=== PATIENT | male | born 1985 | race Caucasian/White ===

== ENCOUNTER 2022-03-10 23:53 | Emergency (ER) | payer OTHER, SELFPAY ==
[2022-03-10 23:59] VITALS: BP 138/90; PULSE 60; RESP 18; TEMP 36.6; O2SAT 99
--- NOTE | 2022-03-11 00:14 | ED_ITS ---
HPI - Eye Problem General Chief complaint: Eye Problems Stated complaint: something in rt eye Time Seen by Provider: 03/11/22 00:10 Source: patient Mode of arrival: Ambulatory History of Present Illness HPI Narrative: 36M nonsmoker without chronic medical history presents with redness and irritation to his right eye which he noticed tonight. He states that he feels like there is something under his upper lid. He does wear contacts and states that they are changed monthly and is typically very careful about changing them at the appropriate time. He states that he took his contact out but it actually felt worse with it out so he put it back in. He denies any change in vision. He is denies any drainage or trauma. He denies welding, metal grinding, UV exposure. He has no recent upper respiratory infections or painful facial rash Related Data Home Medications Medication Instructions Recorded Confirmed . (No Home Medications) ##0 09/06/05 [GLUCOSAMINE] PO QDAY ##0 03/29/10 Allergies Allergy/AdvReac Type Severity Reaction Status Date / Time INGREDIENT: NKDA - NO KNOWN Allergy Unknown Uncoded 06/23/17 12:05 DRUG ALLERGIES Review of Systems Review of Systems Narrative: GENERAL: Denies chills, fatigue, malaise, fever, sweats. HEENT: See HPI RESPIRATORY: Denies dyspnea, cough, wheezing, hemoptysis, sputum. CARDIOVASCULAR: Denies chest pain, palpitations, orthopnea, edema, GASTROINTESTINAL: Denies nausea, vomiting, abdominal pain, diarrhea, constipation, melena. : Denies dysuria, frequency, incontinence, hematuria, urinary retention. MUSCULOSKELETAL: denies weakness, joint pain, or bony pain SKIN: Denies rash, skin lesions, or other NEUROLOGIC: Denies weakness, headache, numbness, change in speech, confusion, seizures, incoordination. PSYCHIATRIC: No concerning psychosocial issues. 12 point review of systems is negative except for those stated above Patient History Social History Smoking Status: Never smoker Smoking Status: Never smoker alcohol intake frequency: a few times a month Substance Use Type: marijuana Exam Narrative Exam Narrative: GENERAL: [36] year old patient appears stated age. Well-developed patient, in mild distress. HEAD: Atraumatic. Normocephalic. EYES: Pupils equal round and reactive. Extraocular motions intact. Right eye with mild injection and watering. No foreign body noted with use of Wood's lamp, upper lid everted, including gentle blind sweep of underside of upper lid with sterile q tip. Patient with complete resolution of discomfort with 1 drop of proparacaine. No fluorescein uptake noted under UV lamp. Pressure with Ramos-Pen 17 mm Hg. Visual acuity unremarkable ENT: Nose without bleeding, purulent drainage. Throat without erythema, tonsillar hypertrophy or exudate. Airway patent. NECK: Trachea midline. Non tender CARDIOVASCULAR: Regular rate and rhythm without murmurs, gallops, or rubs. RESPIRATORY: Clear to auscultation. Breath sounds equal bilaterally. No wheezes, rales, or rhonchi. GASTROINTESTINAL: Abdomen soft, non-tender, nondistended. EXTREMITIES: No edema or joint tenderness. BACK: Nontender without deformity or crepitance. No flank tenderness. NEURO: AOx3. SKIN: No rash or erythema of visible areas Initial Vital Signs Initial Vital Signs: Vital Signs Temperature 98 F 03/10/22 23:59 Pulse Rate 60 03/10/22 23:59 Respiratory Rate 18 03/10/22 23:59 Blood Pressure 138/90 03/10/22 23:59 Pulse Oximetry 99 03/10/22 23:59 Oxygen Delivery Method 03/10/22 23:59 Course Orders Ordered: Discontinued Medications Fluorescein Sodium (Fluorescein 1 Mg Strip) 1 mg EYE-RIGHT NOW ONE Stop: 03/11/22 00:11 Last Admin: 03/11/22 00:21 Dose: 1 mg Documented By: DANII Proparacaine HCl (Proparacaine 0.5% Ophth Shelly) 1 drops EYE-RIGHT NOW ONE Stop: 03/11/22 00:11 Last Admin: 03/11/22 00:20 Dose: 1 box Documented By: DANII Vital Signs Vital signs: Vital Signs - 8 hr 03/10/22 23:59 Temperature 98 F Pulse Rate 60 Respiratory Rate 18 Blood Pressure 138/90 Pulse Oximetry 99 Oxygen Delivery Method Room Air Discharge Plan Departure Patient Disposition: Home Clinical Impression: Acute right eye pain Instructions: DI for Eye Pain Activity Restrictions/Additional Instructions: *You have been diagnosed with [right eye pain. As we discussed your history and physical exam are reassuring, there is no measured abnormality in your visual acuity, I was unable to see any abrasions or ulcerations on your exam and the pressures of your eye are reassuring.] *What to do: *Please continue to take your regular medications as directed. *You have been given a 3mL bottle of proparacaine which has been diluted down to 0.05% concentration. You may use 1-2 drops every 45-60 minutes for up to 48 hours as needed for pain. *Please follow up with your primary eye doctor in 1-2 days, call for an appointment. Let them know you were seen in the Emergency Department and that we ask that you be seen in follow up. We will electronically transmit a record of today's note if your PCP is in our system if possible. *as we discussed please do not wear a contact in your right eye until follow-up * if you are unable to get an appointment with your eye doctor please consider calling Dr. Morrissey or Dr. Quintana at the number listed below, let them know that you were seen in the emergency department and we would like you seen in follow- up *Return to Emergency Department if you should have any new, worsening or concerning symptoms, such as [fever greater than 101 F, shaking chills, worsening pain, persistent vomiting or other bothersome symptoms] Prescriptions: No Action . (No Home Medications) Qty: 0 [GLUCOSAMINE] PO QDAY Qty: 0 Referrals: Tom Morrissey MD [Physician] - Visit Report Forms: Patient Portal/API
[2022-03-11] MEDS: PROPARACAINE 0.5% OPHTH SOL 1 DROPS EYE-RIGHT (00:20)
[2022-03-11] MEDS: FLUORESCEIN 1 MG STRIP EYE-RIGHT (00:21)
== END 2022-03-11 00:38 | disposition home or self-care (01) ==
PROVIDERS: Emergency Provider Emergency Medicine
DX: H57.11 Ocular pain, right eye (principal)
CPT/HCPCS: 99282

== ENCOUNTER 2023-04-17 17:02 | Emergency (ER) | payer OTHER, SELFPAY ==
[2023-04-17 17:04] VITALS: BP 149/92; PULSE 68; RESP 16; TEMP 36.4; O2SAT 99; BMI 25.1
[2023-04-17 17:13] VITALS: BP 145/97; PULSE 72; O2SAT 100
--- NOTE | 2023-04-17 17:16 | ED_ITS ---
HPI - Nausea/Vomiting/Diarrhea <DO Nestor Dougherty Last Filed: 04/18/23 07:02> General Chief complaint: Nausea/Vomiting/Diarrhea Stated complaint: NVD Time Seen by Provider: 04/17/23 17:09 Source: patient Mode of arrival: Ambulatory History of Present Illness HPI Narrative: Patient is an otherwise healthy 37-year-old male who is here for evaluation several days of nausea. No vomiting. Is also having diarrhea. He reports that it is dark in color but no black color. Did have some burning with urination a couple days ago but nothing now. Generalized abdominal discomfort. He has had his appendix removed. Also reports he has having a cough. No shortness of breath. No chest pain. No recent travel. No recent antibiotics. Related Data Home Medications Medication Instructions Recorded Confirmed . (No Home Medications) ##0 09/06/05 [GLUCOSAMINE] PO QDAY ##0 03/29/10 Allergies Allergy/AdvReac Type Severity Reaction Status Date / Time INGREDIENT: NKDA - NO KNOWN Allergy Unknown Uncoded 06/23/17 12:05 DRUG ALLERGIES Review of Systems <DO Nestor Dougherty Last Filed: 04/18/23 07:02> Constitutional Constitutional: Reports system reviewed and no additional complaints, except as documented Cardiovascular Cardiovascular: Reports system reviewed and no additional complaints, except as documented Respiratory Respiratory: Reports system reviewed and no additional complaints, except as documented Gastrointestinal Gastrointestinal: Reports system reviewed and no additional complaints, except as documented Integumentary/Breasts Skin/Breast: Reports system reviewed and no additional complaints, except as documented Neurologic Neurologic: Reports system reviewed and no additional complaints, except as documented Patient History <DO Nestor Dougherty Last Filed: 04/18/23 07:02> Social History Smoking Status: Never smoker Smoking Status: Never smoker alcohol intake frequency: a few times a month Substance Use Type: marijuana Exam <Tejas Vasquez DO - Last Filed: 04/18/23 07:02> Initial Vital Signs Initial Vital Signs: Vital Signs Temperature 97.6 F 04/17/23 17:04 Pulse Rate 68 04/17/23 17:04 Respiratory Rate 16 04/17/23 17:04 Blood Pressure 149/92 H 04/17/23 17:04 Pulse Oximetry 99 04/17/23 17:04 Oxygen Delivery Method Room Air 04/17/23 17:04 HENMT Head: normal to inspection and normocephalic Resp Effort & Inspection: normal respiratory effort Auscultation: clear to auscultation bilaterally Cardio Rate: regular rate Rhythm: regular rhythm GI Inspection: normal to inspection and non-distended Palpation: soft, No firm, No guarding and No tender Neuro General: patient alert, patient awake and moves all extremities Extrem General: normal to inspection and capillary refill normal <Eitan Bingham MD - Last Filed: 04/17/23 18:58> Initial Vital Signs Initial Vital Signs: Vital Signs Temperature 97.6 F 04/17/23 17:04 Pulse Rate 68 04/17/23 17:04 Respiratory Rate 16 04/17/23 17:04 Blood Pressure 149/92 H 04/17/23 17:04 Pulse Oximetry 99 04/17/23 17:04 Oxygen Delivery Method Room Air 04/17/23 17:04 Course <Tejas Vasquez DO - Last Filed: 04/18/23 07:02> Orders Ordered: Discontinued Medications Sodium Chloride (Normal Saline 0.9%) 1,000 mls @ 1,000 mls/hr IV BOLUS ONE Stop: 04/17/23 18:09 Last Infusion: 04/17/23 18:20 Dose: Infused Documented By: Admin: 04/17/23 17:30 Dose: 1,000 mls/hr Documented By: DEA Ondansetron HCl (Ondansetron 4 Mg/2 Ml Inj) 4 mg IV NOW ONE Stop: 04/17/23 17:11 Last Admin: 04/17/23 17:30 Dose: 4 mg Documented By: DEA Vital Signs Vital signs: Vital Signs - 8 hr 04/17/23 17:04 04/17/23 17:13 04/17/23 17:13 Temperature 97.6 F Pulse Rate 68 72 Respiratory Rate 16 Blood Pressure 149/92 H 145/97 H Pulse Oximetry 99 100 Oxygen Delivery Method Room Air 04/17/23 17:30 04/17/23 17:30 04/17/23 18:00 Temperature Pulse Rate 66 68 Respiratory Rate Blood Pressure 121/76 Pulse Oximetry 99 100 Oxygen Delivery Method 04/17/23 18:00 Temperature Pulse Rate Respiratory Rate Blood Pressure 121/73 Pulse Oximetry Oxygen Delivery Method <Eitan Bingham MD - Last Filed: 04/17/23 18:58> Orders Ordered: Discontinued Medications Sodium Chloride (Normal Saline 0.9%) 1,000 mls @ 1,000 mls/hr IV BOLUS ONE Stop: 04/17/23 18:09 Last Infusion: 04/17/23 18:20 Dose: Infused Documented By: Admin: 04/17/23 17:30 Dose: 1,000 mls/hr Documented By: RB Ondansetron HCl (Ondansetron 4 Mg/2 Ml Inj) 4 mg IV NOW ONE Stop: 04/17/23 17:11 Last Admin: 04/17/23 17:30 Dose: 4 mg Documented By: RB Vital Signs Vital signs: Vital Signs - 8 hr 04/17/23 17:04 04/17/23 17:13 04/17/23 17:13 Temperature 97.6 F Pulse Rate 68 72 Respiratory Rate 16 Blood Pressure 149/92 H 145/97 H Pulse Oximetry 99 100 Oxygen Delivery Method Room Air 04/17/23 17:30 04/17/23 17:30 04/17/23 18:00 Temperature Pulse Rate 66 68 Respiratory Rate Blood Pressure 121/76 Pulse Oximetry 99 100 Oxygen Delivery Method 04/17/23 18:00 Temperature Pulse Rate Respiratory Rate Blood Pressure 121/73 Pulse Oximetry Oxygen Delivery Method MDM - Nausea/Vomiting/Diarrhea <Tejas Vasquez DO - Last Filed: 04/18/23 07:02> Lab Data Attestation: I reviewed the patient's lab results. 04/17/23 17:20 04/17/23 17:20 Labs: Lab Results 04/17/23 04/17/23 Range/Units 17:20 17:30 WBC 11.0 (4.5-11.0) X10^3/uL RBC 4.64 (4.5-5.9) X10^6/uL Hgb 14.8 (13.5-17.5) g/dL Hct 42.7 (41-53) % MCV 92.0 (80-100) fL MCH 31.8 (26-34) PG MCHC 34.6 (30-36) % RDW 12.9 (11.6-14.8) % Plt Count 269 (150-400) X10^3/uL Neut % (Auto) 75.8 H (50-75) % Lymph % (Auto) 19.2 L (25-40) % Starke % (Auto) 4.2 (3-14) % Eos % (Auto) 0.4 L (2-4) % Baso % (Auto) 0.4 (0-2) % Neut # (Auto) 8300 H (1252-1576) /uL Lymph # (Auto) 2100 (9800-0264) /uL Starke # (Auto) 500 (0-900) /uL Eos # (Auto) 0 (0-450) /uL Baso # (Auto) 0 (0-100) /uL Sodium 136 L (137-145) mmol/L Potassium 4.0 (3.4-5.1) mmol/L Chloride 99 (98-107) mmol/L Carbon Dioxide 27 (22-32) mmol/L BUN 20 (9-20) mg/dL Creatinine 0.92 (0.66-1.25) mg/dL Estimated GFR > 60 (>60) mL/min BUN/Creatinine Ratio 21.7 (6-22) Glucose 113 H (70-100) mg/dL Calcium 9.7 (8.4-10.2) mg/dL Total Bilirubin 0.7 (0.2-1.3) mg/dL AST 31 (17-59) IU/L ALT 23 (<50) IU/L Alkaline Phosphatase 77 (38-126) U/L Total Protein 8.5 H (6.3-8.2) g/dL Albumin 4.8 (3.5-5.0) g/dL Globulin 3.7 (1.7-4.1) g/dL Albumin/Globulin Ratio 1.3 (1.0-2.8) Lipase 126 (23-300) U/L SARS-CoV-2 (PCR) Positive H (Negative) Influenza A (RT-PCR) Flu a negative (NEGATIVE) Influenza B (RT-PCR) Flu b negative (NEGATIVE) RSV (PCR) Negative (Negative) Urine Dip Bedside Urine Glucose Negative Bedside Urine Bilirubin - Negative Bedside Urine Ketone - Negative Urine Specific Weiner 1.015 Bedside Urine Occult Blood - Negative Bedside Urine pH 7.5 Bedside Urine Protein - Negative Bedside Urine Urobilinogen - Negative Bedside Urine Nitrite - Negative Bedside Urine Leukocytes - Negative Esterase MDM Narrative Medical decision making narrative: Benign exam. Symptoms have been present for the past couple days. He did have dysuria couple days ago but none currently. Will obtain labs and urinalysis and labs. Re-evaluate and disposition. <Eitan Bingham MD - Last Filed: 04/17/23 18:58> Lab Data Labs: Lab Results 04/17/23 04/17/23 Range/Units 17:20 17:30 WBC 11.0 (4.5-11.0) X10^3/uL RBC 4.64 (4.5-5.9) X10^6/uL Hgb 14.8 (13.5-17.5) g/dL Hct 42.7 (41-53) % MCV 92.0 (80-100) fL MCH 31.8 (26-34) PG MCHC 34.6 (30-36) % RDW 12.9 (11.6-14.8) % Plt Count 269 (150-400) X10^3/uL Neut % (Auto) 75.8 H (50-75) % Lymph % (Auto) 19.2 L (25-40) % Starke % (Auto) 4.2 (3-14) % Eos % (Auto) 0.4 L (2-4) % Baso % (Auto) 0.4 (0-2) % Neut # (Auto) 8300 H (8268-2485) /uL Lymph # (Auto) 2100 (0860-0895) /uL Starke # (Auto) 500 (0-900) /uL Eos # (Auto) 0 (0-450) /uL Baso # (Auto) 0 (0-100) /uL Sodium 136 L (137-145) mmol/L Potassium 4.0 (3.4-5.1) mmol/L Chloride 99 (98-107) mmol/L Carbon Dioxide 27 (22-32) mmol/L BUN 20 (9-20) mg/dL Creatinine 0.92 (0.66-1.25) mg/dL Estimated GFR > 60 (>60) mL/min BUN/Creatinine Ratio 21.7 (6-22) Glucose 113 H (70-100) mg/dL Calcium 9.7 (8.4-10.2) mg/dL Total Bilirubin 0.7 (0.2-1.3) mg/dL AST 31 (17-59) IU/L ALT 23 (<50) IU/L Alkaline Phosphatase 77 (38-126) U/L Total Protein 8.5 H (6.3-8.2) g/dL Albumin 4.8 (3.5-5.0) g/dL Globulin 3.7 (1.7-4.1) g/dL Albumin/Globulin Ratio 1.3 (1.0-2.8) Lipase 126 (23-300) U/L SARS-CoV-2 (PCR) Positive H (Negative) Influenza A (RT-PCR) Flu a negative (NEGATIVE) Influenza B (RT-PCR) Flu b negative (NEGATIVE) RSV (PCR) Negative (Negative) Urine Dip Bedside Urine Glucose Negative Bedside Urine Bilirubin - Negative Bedside Urine Ketone - Negative Urine Specific Weiner 1.015 Bedside Urine Occult Blood - Negative Bedside Urine pH 7.5 Bedside Urine Protein - Negative Bedside Urine Urobilinogen - Negative Bedside Urine Nitrite - Negative Bedside Urine Leukocytes - Negative Esterase MDM Narrative Medical decision making narrative: Benign exam. Symptoms have been present for the past couple days. He did have dysuria couple days ago but none currently. Will obtain labs and urinalysis and labs. Re-evaluate and disposition. Current time is 6:54 p.m.. IEitan, assumed care from Dr. Tejas Vasquez at approximately 6:00 p.m. patient is comfortably reading a book when I go to talk to him. He has SARS-CoV-2 on his viral swab. I think this is the explanation for the symptoms he was experiencing. I think home disposition and outpatient follow-up as needed with careful return precautions is all that is required at this time. Discharge Plan Departure Patient Disposition: Home Clinical Impression: COVID-19 Activity Restrictions/Additional Instructions: Fortunately no severe complications of COVID-19 are identified with this infection today. I recommend copious oral hydration, Tylenol 1000 mg taken together with ibuprofen 600 mg every 6 hours. Extra rest. I expect you to feel back to normal in about a week. Follow up right away for breathlessness at rest, repeated severe vomiting or diarrhea, fainting or other severe symptoms. Prescriptions: No Action . (No Home Medications) Qty: 0 [GLUCOSAMINE] PO QDAY Qty: 0 Referrals: Miscellaneous,Doctor, MD [Primary Care Provider] - Stand Alone Forms: Patient Portal/API
[2023-04-17 17:27] LABS: Add Manual Diff / Slide Review NO; Basophils Absolute Auto 0 /uL (0-100); Basophils Percent Auto 0.4 % (0-2); Eosinophils Absolute Auto 0 /uL (0-450); Eosinophils Percent Auto 0.4 % (2-4); Hematocrit 42.7 % (41-53); Hemoglobin 14.8 g/dL (13.5-17.5); Lymphocytes Absolute Auto 2100 /uL (1100-4500); Lymphocytes Percent Auto 19.2 % (25-40); Mean Corpuscular HGB Conc 34.6 % (30-36); Mean Corpuscular Hemoglobin 31.8 PG (26-34); Monocytes Absolute Auto 500 /uL (0-900); Monocytes Percent Auto 4.2 % (3-14); Neutrophils Absolute Auto 8300 /uL (1500-7000); Neutrophils Percent Auto 75.8 % (50-75); Platelet Count 269 X10^3/uL (150-400); Red Blood Cell Count 4.64 X10^6/uL (4.5-5.9); Red Cell Distribution Width 12.9 % (11.6-14.8)
[2023-04-17 17:30] VITALS: BP 121/76; PULSE 66; O2SAT 99
[2023-04-17] MEDS: SODIUM CHLORIDE 0.9% 1,000 ML 1000 ML IV (17:30)
[2023-04-17] MEDS: ONDANSETRON 4 MG/2 ML INJ IV (17:30)
[2023-04-17 17:38] LABS: Alanine Aminotransferase 23 IU/L (<50); Albumin 4.8 g/dL (3.5-5.0); Albumin Globulin Ratio 1.3 (1.0-2.8); Alkaline Phosphatase 77 U/L (38-126); Aspartate Aminotransferase 31 IU/L (17-59); BUN Creatinine Ratio 21.7 (6-22); Bilirubin Total 0.7 mg/dL (0.2-1.3); Blood Urea Nitrogen 20 mg/dL (9-20); Calcium 9.7 mg/dL (8.4-10.2); Carbon Dioxide 27 mmol/L (22-32); Chloride 99 mmol/L (98-107); Estimated Glomerular Filt Rate > 60 mL/min (>60); Globulin 3.7 g/dL (1.7-4.1); Glucose 113 mg/dL (70-100); HEMOLYSIS 30 (0-50); Lipase 126 U/L (23-300); Sodium 136 mmol/L (137-145); Total Protein 8.5 g/dL (6.3-8.2)
[2023-04-17 18:00] VITALS: BP 121/73; PULSE 68; O2SAT 100
[2023-04-17 18:12] LABS: Influenza A - CEPHEID Flu A NEGATIVE (NEGATIVE); Influenza B - CEPHEID Flu B NEGATIVE (NEGATIVE); Respiratory Syncytial Virus Negative (Negative)
[2023-04-17 18:15] LABS: COVID-19 CEPHEID 4-PLEX PCR POSITIVE (Negative)
== END 2023-04-17 19:07 | disposition home or self-care (01) ==
PROVIDERS: Emergency Medicine; Emergency Provider Family Medicine Addiction Medicine
DX: U07.1 COVID-19 (principal); R30.0 Dysuria
CPT/HCPCS: 0241U; 36415; 80053; 81003; 83690; 85025; 96361; 96374; 99284; J2405

== ENCOUNTER → 2024-01-20 07:12 | Outpatient (CLI) | payer BC, SELFPAY ==
[2024-01-20 08:24] LABS: Add Manual Diff / Slide Review NO; Basophils Absolute Auto 100 /uL (0-100); Basophils Percent Auto 0.5 % (0-2); Eosinophils Absolute Auto 100 /uL (0-450); Hematocrit 45.8 % (41-53); Hemoglobin 15.6 g/dL (13.5-17.5); Lymphocytes Absolute Auto 2100 /uL (1100-4500); Lymphocytes Percent Auto 19.3 % (25-40); Mean Corpuscular Hemoglobin 32.4 PG (26-34); Mean Corpuscular Volume 95.3 fL (80-100); Monocytes Absolute Auto 700 /uL (0-900); Monocytes Percent Auto 6.1 % (3-14); Neutrophils Absolute Auto 7800 /uL (1500-7000); Neutrophils Percent Auto 73.1 % (50-75); Platelet Count 297 X10^3/uL (150-400); Red Cell Distribution Width 13.2 % (11.6-14.8); White Blood Cell Count 10.7 X10^3/uL (4.5-11.0)
[2024-01-20 08:44] LABS: Alanine Aminotransferase 20 IU/L (<50); Albumin 4.7 g/dL (3.5-5.0); Albumin Globulin Ratio 1.4 (1.0-2.8); Alkaline Phosphatase 88 U/L (38-126); Aspartate Aminotransferase 23 IU/L (17-59); BUN Creatinine Ratio 16.5 (6-22); Bilirubin Total 0.7 mg/dL (0.2-1.3); Blood Urea Nitrogen 15 mg/dL (9-20); Calcium 9.9 mg/dL (8.4-10.2); Carbon Dioxide 28 mmol/L (22-32); Chloride 101 mmol/L (98-107); Cholesterol 193 mg/dL (140-199); Estimated Glomerular Filt Rate > 60 mL/min (>60); Globulin 3.3 g/dL (1.7-4.1); Glucose 91 mg/dL (70-100); HDL Cholesterol 72 mg/dL (40-60); HEMOLYSIS < 15 (0-50); LDL Cholesterol Calculated 107 mg/dL (<100); Potassium 4.6 mmol/L (3.4-5.1); Sodium 138 mmol/L (137-145); Triglycerides 70 mg/dL (35-150)
[2024-01-21 05:15] LABS: Apolipoprotein B 81 mg/dL (<90)
== END ==
PROVIDERS: PCP Family Medicine; Referring Provider Family Medicine; Visit Provider Family Medicine
DX: F33.8 Other recurrent depressive disorders (principal); R73.9 Hyperglycemia, unspecified; R77.9 Abnormality of plasma protein, unspecified
CPT/HCPCS: 36415; 80053; 80061; 82172; 85025

== ENCOUNTER → 2024-02-16 15:09 | Outpatient (CLI) | payer BC, SELFPAY ==
[2024-02-16 16:04] LABS: Semen Sperm Prescence Post-Vas Absent (ABSENT)
== END ==
PROVIDERS: PCP Family Medicine; Referring Provider Family Medicine; Visit Provider Family Medicine
DX: Z98.52 Vasectomy status (principal)
CPT/HCPCS: 89321